=== PATIENT | male | born 1980 | race Caucasian/White ===

== ENCOUNTER 2016-12-10 17:37 | Observation (INO) ==
[2016-12-10 18:20] LABS: Basophils % 0.3 %; Eosinophils # 0.2 K/mcL (0.0-0.6); Eosinophils % 1.7 %; Hematocrit 42.8 % (37.5-50.1); Hemoglobin 13.7 g/dL (12.9-16.9); Immature Granulocytes % 0.5 % (0-4); Lymphocytes # 2.4 K/mcL (0.6-4.6); Lymphocytes % 27.5 %; Mean Corpuscular Hemoglobin 28.7 pg (28.0-33.3); Mean Corpuscular Volume 89.7 fL (83.0-100.0); Mean Platelet Volume 9.9 fL (9.4-12.4); Monocytes # 0.9 K/mcL (0.0-1.3); Monocytes % 10.6 %; Neutrophils # 5.2 K/mcL (1.6-8.9); Platelet Count 237 K/mcL (140-400); Red Blood Count 4.77 M/mcL (4.19-5.50); Red Cell Distribution Width 13.1 % (11.5-14.5); Segmented Neutrophils % 59.4 %
[2016-12-10 18:35] LABS: Alanine Aminotransferase 35 Units/L (0-55); Albumin 3.7 g/dL (3.5-5.0); Alkaline Phosphatase 66 Units/L (38-126); Aspartate Amino Transferase 21 Units/L (5-34); BUN/Creatinine Ratio 10 (6-26); Bilirubin,Total 0.4 mg/dL (0.2-1.2); Blood Urea Nitrogen 10 mg/dL (8-26); Calcium 9.1 mg/dL (8.6-10.8); Carbon Dioxide 24 mEq/L (19-29); Chloride 107 mEq/L (98-109); Globulin 3.8 g/dL (2.4-3.5); Glucose 105 mg/dL (70-99); Osmolality,Calculated 287 (280-300); Potassium 3.9 mEq/L (3.5-4.5); Sodium 139 mEq/L (136-145); Total Protein 7.5 g/dL (6.0-8.3); eGFR For African Americans > 60 (> 60); eGFR For Non-African Americans > 60 (> 60)
[2016-12-10] MEDS ORDERED: Aspirin 81 MG TAB.CHEW PO ONE (19:36)
[2016-12-10] MEDS: Nitroglycerin 0.4 MG TAB.SUBL SL ONE ×3 (20:17→20:28)
--- NOTE | 2016-12-10 21:07 | Emergency Department Note ---
Addendum entered and electronically signed by Wood Gregory DO 21:26: This addendum serves to add EKG results which were omitted from the below report by myself: EKG #1-EKG dated 12/10/16 at 17:43 interpreted as sinus rhythm with a rate of 74. Normal intervals. Normal axis. Nonspecific ST-T changes. No previous EKG for comparison. Suspect arm lead reversal. EKG #2-repeat EKG 12/10/16 at 19:39 interpreted as sinus rhythm with rate of 60. Normal intervals. Normal axis. No ST or ischemic changes compared to previous EKG from 2 hours prior. Original Note: Disposition Clinical Impression: Chest pain of uncertain etiology Disposition: Admitted As Inpatient Condition: Fair Time of Disposition: 21:12 Chest Pain HPI - General Chief Complaint: ED Chest Pain Stated Complaint: chest pain Time Seen by Provider: 12/10/16 19:34 Source: patient Mode of arrival: ambulatory Limitations: no limitations Vital Signs Reviewed: Yes Nursing Notes Reviewed: Yes - History of Present Illness HPI Narrative: Mr. Patel, a 36-year-old male, presents from home for evaluation of chest pain. Onset 2-3 days ago. Described as left lower chest in the midclavicular line. A constant dull sensation with intermittent sharp stabbing. Radiation to his left scapula with associated left arm heaviness, and dyspnea. No diaphoresis. Patient has never had these symptoms previously. PMH: Hypertension, Atrial fibrillation rate controlled on metoprolol. No current anticoagulant. Current antiplatelet is aspirin 81 mg daily. Family history: Father had an MO at the age of 57. ROS: Positive: Chest pain with radiation, left upper extremity weakness, dyspnea Negative: Nausea, vomiting, fever, chills, diaphoresis Severity scale (1-10): 5 - Related Data Home Medications Medication Instructions Recorded Confirmed Aspirin Enteric Coated [Aspirin EC] 81 mg PO DAILY 12/10/16 12/10/16 Metoprolol Succinate 100 mg PO DAILY 12/10/16 12/10/16 Allergies Allergy/AdvReac Type Severity Reaction Status Date / Time Penicillins Allergy See Verified 12/10/16 17:39 Comments All systems ED: reviewed and negative except as stated. Chest Pain PMH - Past Medical History Medical history: Reports: atrial fibrillation, hypertension Surgical history: Reports: no surgical history Psychiatric history: Reports: no psych history - Social History Smoking Status: Never smoker Alcohol use: Reports: none Drug use: Reports: none Physical Exam Vital Signs Reviewed General: Patient is alert, oriented, and in no acute distress. HEENT: No facial asymmetry. Head is normocephalic and atraumatic. Oral mucosa moist. Trachea midline. Cardiovascular: Heart regular rate and rhythm without clicks, rubs, gallops, or murmurs. No JVD. PMI nondisplaced. Respiratory: Symmetric chest rise with good respiratory effort. Bilateral breath sounds are clear without wheezing, crackles, or rhonchi. Abdomen: Bowel sounds present normoactive x-4 quadrants. Abdomen is soft, nondistended, and nontender. No organomegaly noted. Gait: Warm, dry, intact. Psych: Patient's affect is appropriate for situation. - General Limitations: no limitations General appearance: alert Course Course Narrative: Patient present for evaluation of chest pain. Onset 2-3 days ago and persistent. Described as underlying dullness with intermittent sharp stabbing if radiation to his left scapula as well as left upper extremity weakness and dyspnea. Cardiac risk factors of hypertension, atrial fibrillation rate controlled on metoprolol. Patient takes aspirin 81 mg daily. Initial lab work is unremarkable. Specifically, no elevation of troponin and unremarkable EKG. Repeat EKG at the two-hour shabana is also unremarkable. Patient is having chest pain at this time. It was fully relieved with 3 rounds of 400mcg sublingual nitroglycerin. I discussed the patient is initial findings, the meaning of an EKG, and the meaning of troponin. I discussed the need for admission to risk stratify his symptoms. He expresses understanding and agrees. I spoke with the admitting hospitalist, , who agrees to accept the patient for chest pain rule out ACS. Vital Signs Temperature 98.6 F 12/10/16 17:44 Pulse Rate 89 12/10/16 17:44 Respiratory Rate 20 12/10/16 17:44 Blood Pressure 136/65 12/10/16 17:44 O2 Sat by Pulse Oximetry 95 12/10/16 17:44 Temperature 97.8 F 12/11/16 03:45 Pulse Rate 73 12/11/16 03:45 Respiratory Rate 17 12/11/16 03:45 Blood Pressure 110/67 12/11/16 03:45 O2 Sat by Pulse Oximetry 93 12/11/16 03:45 Oxygen Delivery Oxygen Delivery Room Air Chest Pain - Medical Records Medical records reviewed: Yes I reviewed the patient's medical records. - Lab Data Lab results reviewed: Yes I reviewed the patient's lab results. Result diagrams: 12/11/16 01:49 12/11/16 01:49 Lab Results 12/10/16 12/10/16 12/10/16 Range/Units 18:05 18:05 18:05 WBC 8.8 (4.3-11.1) K/mcL RBC 4.77 (4.19-5.50) M/mcL Hgb 13.7 (12.9-16.9) g/dL Hct 42.8 (37.5-50.1) % MCV 89.7 (83.0-100.0) fL MCH 28.7 (28.0-33.3) pg MCHC 32.0 (31.6-35.5) g/dL RDW 13.1 (11.5-14.5) % Plt Count 237 (140-400) K/mcL MPV 9.9 (9.4-12.4) fL Immature Gran % 0.5 (0-4) % Seg Neutrophils % 59.4 % Lymphocytes % 27.5 % Monocytes % 10.6 % Eosinophils % 1.7 % Basophils % 0.3 % Neutrophils # 5.2 (1.6-8.9) K/mcL Lymphocytes # 2.4 (0.6-4.6) K/mcL Monocytes # 0.9 (0.0-1.3) K/mcL Eosinophils # 0.2 (0.0-0.6) K/mcL Basophils # 0.0 (0.0-0.2) K/mcL Sodium 139 (136-145) mEq/L Potassium 3.9 (3.5-4.5) mEq/L Chloride 107 (98-109) mEq/L Carbon Dioxide 24 (19-29) mEq/L BUN 10 (8-26) mg/dL Creatinine 0.97 (0.72-1.25) mg/dL Est GFR ( Amer) > 60 (> 60) Est GFR (Non-Af Amer) > 60 (> 60) BUN/Creatinine Ratio 10 (6-26) Glucose 105 H (70-99) mg/dL Calculated Osmolality 287 (280-300) Calcium 9.1 (8.6-10.8) mg/dL Total Bilirubin 0.4 (0.2-1.2) mg/dL AST 21 (5-34) Units/L ALT 35 (0-55) Units/L Alkaline Phosphatase 66 (38-126) Units/L Troponin I 0.00 (0-0.03) ng/mL Serum Total Protein 7.5 (6.0-8.3) g/dL Albumin 3.7 (3.5-5.0) g/dL Globulin 3.8 H (2.4-3.5) g/dL Albumin/Globulin Ratio 1.0 L (1.1-2.2) - Radiology Data Radiology results reviewed: Yes I reviewed the patient's radiology results. Chest X-Ray 12/10/16 17:39 IMPRESSION: No evidence of acute disease. D/ / Tiburcio Prince MD / Tiburcio Prince MD Interpreting Provider: Tiburcio Prince MD Heart Score - Score History: Moderately Suspicious EKG: Non Specific repolarisation Disturbance Age: Less than 45 Risk Factors: Equal/Greater than 3 risk factor or history of atherosclerotic disease Troponin: Less than normal limit HEART Score Total: 4 Attestation Statement - Attestation Attestation: I examined this patient and my medical decision-making was reviewed with the Resident Physician, Dr. Gregory. I agree with the documented findings, disposition and treatment plan as described except to the extent set forth below. Patient is 36-year-old male who presents to the emergency room today with a history of atrial fibrillation and hypertension who is complaining of left- sided chest pain that radiates into the left scapula associated with shortness of breath for the last 2 days. I agree patient's physical exam findings as documented. EKG was normal sinus rhythm without ischemic changes this was compared to an old EKG which was unchanged. Patient received aspirin and nitroglycerin on arrival which completely alleviated his symptoms and he is now chest pain-free with stable vital signs. Initial troponin was negative chest x-ray is clear. We will admit the patient for further evaluation of chest pain rule out ACS. Case was discussed with the hospitalist who accepted the patient for admission for further management.
[2016-12-10] MEDS ORDERED: Naloxone 0.4 MG/ML INJ IVP PRN (23:36)
[2016-12-10] MEDS ORDERED: Nitroglycerin 0.4 MG TAB.SUBL SL PRN (23:40)
--- NOTE | 2016-12-10 23:50 | Internal Med History&Physical ---
<Sienna Duran - Last Filed: 12/11/16 00:17> Date of Encounter: 12/11/16 Time of Encounter: 23:47 Assessment and Plan (1) Chest pain Current visit: Yes Status: Acute 1 . The past 2-3 days patient has been experiencing left-sided chest heaviness which was nonradiating. No aggravating or relieving factors. He has a history of hypertension hyperlipidemia father had MS at age 49. Troponin serially will continue to trend troponins 2 continuous cardiac monitoring 3 obtain lipid profile-statin 4 continue with aspirin and beta dee 5. Nothing by mouth after midnight-cardiac stress in a.m. 6 nitroglycerin for chest pain 7 oxygen as needed Qualifiers: Chest pain type: unspecified Qualified Code(s): R07.9 - Chest pain, unspecified (2) Hypertension Current visit: No Status: Chronic Presently controlled we will continue with metoprolol Low-sodium diet Qualifiers: Hypertension type: essential hypertension Qualified Code(s): I10 - Essential (primary) hypertension (3) Paroxysmal atrial fibrillation Current visit: Yes Status: Acute Presently in sinus rhythm Continue with metoprolol and aspirin (4) DVT prophylaxis Current visit: No Status: Chronic 1 Lovenox subcutaneous Internal Medicine - H&P: HPI Chief complaint: CP Admitted From: Emergency Dept Plans for Post Hospital Care: Home History of present illness: Mr. Patel is a 36 year old male with history of hypertension paroxysmal atrial fibrillation. Currently the patient he began to experience left-sided chest heaviness on Friday which she described 6/10 pain nonradiating. There were no aggravating or relieving factors. Chest heaviness resolved on own however he continued to experience intermittent heaviness over the next 2-3 days. She denies any associated symptoms of dyspnea diaphoresis or nausea. He did have a stress test 2 years ago which he states was negative. He does have a history of atrial fibrillation which he takes baby aspirin and metoprolol. He presented to the ER with the above complaints. Lab work was obtained which was unremarkable troponin was 0.0. Chest x-ray was negative. EKG with no ST-T wave abnormalities. He has been admitted for further workup and evaluation. Presently patient denies any chest pain palpitations or shortness of breath. His lung sounds are clear heart sounds are regular S1 and S2 with no rubs clicks gallops murmurs noted. Abdomen soft nontender no pedal edema. He is hemodynamically stable this time. I reviewed this case with Dr. Angelo who agrees with plan. Past Med Surg Social Fam HX - Past Medical History Medical history: atrial fibrillation, hypertension Psychiatric history: no psych history - Past Surgical History Surgical History: no surgical history - Social History Smoking Status: Never smoker Smokeless Tobacco Status: No Alcohol use: none Drug use: none - Family History Father Living Status: Still Living Hx Family Cardiac Disorders: Yes (MS at 49, HTN) Hx Family Endocrine Disorder: Yes (DM) Mother Living Status: Still Living Hx Family Cardiac Disorders: Yes (HTN) Internal Medicine - H&P: Meds Aspirin Enteric Coated [Aspirin EC] 81 mg PO DAILY 12/10/16 [History] Metoprolol Succinate 100 mg PO DAILY 12/10/16 [History] 3 Allergy/AdvReac Type Severity Reaction Status Date / Time Penicillins Allergy See Verified 12/10/16 17:39 Comments All Systems PM: A 10-system review of systems was performed and is negative for pertinent findings except as documented above in the HPI. - Constitutional Constitutional: no chills, no fever(s), no night sweats - EENT Eyes: no change in vision, no discharge, no pain, no photophobia Nose, mouth and throat: no dysphagia, no nasal discharge, no neck pain, no sore throat - Cardiovascular Cardiovascular ROS IM: chest pain - Respiratory Respiratory: no cough, no dyspnea, no wheezing, no excessive phlegm production - Gastrointestinal Gastrointestinal: no abdominal pain, no diarrhea, no hematemesis, no hematochezia, no melena, no nausea, no vomiting - Musculoskeletal Musculoskeletal ROS IM: no numbness, no tingling - Integumentary Integumentary IM: no rash, no unusual bruising - Neurological Neurological ROS: no confusion, no convulsions, no focal weakness, no numbness, no tingling, no tremor(s) - Constitutional Vitals: Temp Pulse Resp BP Pulse Ox 98.2 F 65 16 138/83 96 12/10/16 23:21 12/10/16 23:21 12/10/16 23:21 12/10/16 23:21 12/10/16 23:21 General appearance: Present: A&O X 3, answers questions appropriately - Head Head exam: Present: atraumatic, normocephalic - Eye Eye exam: Present: PERRL, conjuntiva pink, sclera anicteric Pupils: Present: PERRL - Neck Neck exam general surgery: Present: supple, trachea midline. Absent: lymphadenopathy - Respiratory Respiratory exam: Present: CTAB. Absent: accessory muscle use, rales, rhonchi, wheezes - Cardiovascular Cardiovascular exam: Present: RRR, +S1, +S2. Absent: diastolic murmur, gallop, rubs, systolic murmur - GI/Abdominal GI/Abdominal exam: Present: normal bowel sounds, soft, no peritoneal signs. Absent: distended, tenderness - Extremities Exam Extremities exam: Present: warm, radial pulses palpable and symmetrical. Absent : calf tenderness, cyanotic, pedal edema - Neurological Exam Neurological exam: Present: CN II-XII intact, oriented X3, no focal deficits. Absent: pronater drift, facial droop, speech deficit - Skin Skin exam: Present: dry, intact Internal Med - H&P Results - Labs CBC & Chem 7: 12/10/16 18:05 12/10/16 18:05 - EKG Data EKG shows normal: sinus rhythm - EKG Data Interpretation IM: normal EKG - Diagnostic Studies Other Images Additional comments: Chest X-Ray 12/10/16 17:39 IMPRESSION: No evidence of acute disease. D/ / Tiburcio Prince MD / Tiburcio Prince MD Interpreting Provider: Tiburcio Prince MD <Naresh Santillan - Last Filed: 12/11/16 03:27> Date of Encounter: 12/11/16 Internal Medicine - H&P: HPI History of present illness: Mr. Patel is a 36 year old male All Systems PM: A 10-system review of systems was performed and is negative for pertinent findings except as documented above in the HPI. - Constitutional Vitals: Temp Pulse Resp BP Pulse Ox 98.2 F 65 16 138/83 96 12/10/16 23:21 12/10/16 23:21 12/10/16 23:21 12/10/16 23:21 12/10/16 23:21 Internal Med - H&P Results - Labs CBC & Chem 7: 12/11/16 01:49 12/10/16 18:05 Labs: Short CBC 12/11/16 Range/Units 01:49 WBC 8.0 (4.3-11.1) K/mcL Hgb 12.7 L (12.9-16.9) g/dL Hct 39.0 (37.5-50.1) % Plt Count 212 (140-400) K/mcL Neutrophils # 4.3 (1.6-8.9) K/mcL - Attending Attestation I have seen and examined the patient. I have reviewed the orders and the note. Patient is a 36-year-old male with past medical history of hypertension and history of atrial fibrillation. He presents to the ED with complaints of chest pain. Pain started about 2-3 days ago. No aggravating or alleviating factors. Chest pain is now resolved. Patient states he takes a baby aspirin and metoprolol at home. Initial workup in the ED is negative. Troponin is negative. We will trend troponins. Patient will need stress test in a.m. Continue aspirin and statin. Continue home meds. Patient does not have any other complaints at this time. Heart rate 65, blood pressure 138/83, O2 96% on room air. Heart S1-S2 positive no murmurs. Lungs good air entry bilateral and no wheezing or crackle. Abdomen soft nontender no masses or guarding. Extremities all pulses strong regular, no edema noted
[2016-12-11 02:54] LABS: Basophils % 0.4 %; Eosinophils # 0.2 K/mcL (0.0-0.6); Eosinophils % 2.1 %; Hemoglobin 12.7 g/dL (12.9-16.9); Immature Granulocytes % 0.4 % (0-4); Lymphocytes # 2.7 K/mcL (0.6-4.6); Lymphocytes % 33.3 %; Mean Corpuscular HGB Conc 32.6 g/dL (31.6-35.5); Mean Corpuscular Hemoglobin 29.2 pg (28.0-33.3); Mean Corpuscular Volume 89.7 fL (83.0-100.0); Mean Platelet Volume 10.5 fL (9.4-12.4); Monocytes # 0.8 K/mcL (0.0-1.3); Neutrophils # 4.3 K/mcL (1.6-8.9); Platelet Count 212 K/mcL (140-400); Red Blood Count 4.35 M/mcL (4.19-5.50); Red Cell Distribution Width 13.1 % (11.5-14.5); Segmented Neutrophils % 53.8 %
[2016-12-11 03:08] LABS: BUN/Creatinine Ratio 10 (6-26); Blood Urea Nitrogen 10 mg/dL (8-26); Calcium 8.6 mg/dL (8.6-10.8); Carbon Dioxide 28 mEq/L (19-29); Chloride 106 mEq/L (98-109); Chol/HDL Ratio 5.3 (0-4.9); Cholesterol 174 mg/dL (< 200); Glucose 119 mg/dL (70-99); HDL Cholesterol 33 mg/dL (40-59); LDL Cholesterol,Calculated 121 mg/dL (0-99); Magnesium 2.1 mg/dL (1.6-2.6); Osmolality,Calculated 290 (280-300); Potassium 3.6 mEq/L (3.5-4.5); Sodium 140 mEq/L (136-145); Triglycerides 102 mg/dL (< 150); eGFR For African Americans > 60 (> 60); eGFR For Non-African Americans > 60 (> 60)
[2016-12-11 03:45] VITALS: BP 110/67
--- NOTE | 2016-12-11 08:41 | Nuclear Medicine Stress Report ---
Exercise Nuclear Stress Name: Chun Patel Date of Study: 12/11/2016 Date: 1980 Ht: 67.0 in Medical Record#: [id number] Age: 36 Wt: 230.0 lb Gender: Male Order #: [id number] Location: [facility] Room: [facility] Supervising Provider: Amber Crockett CNP Reading Physician: Mayo Pennington DO, FACC, FASCO Ordering Physician: Vikki Chandra MD Primary Care Physician: Quita Bender CNP Stress Technologist: Ana Larsen RELATIONS SPECIALIST, CCT State Game Protector: Lisa Harrison Indications: Chest Pain Impression: Exercise ECG is negative for ischemia. The exercise capacity was excellent. No chest discomfort reported. Gated EF = 53%. Small sized, moderate intensity, fixed apical inferior defect c/w artifact. Perfusion imaging was negative for ischemia or infarct. History: Hypertension Stress Test Summary: Stress Test Type: Treadmill Protocol: Parker Baseline Information: Initial Heart Rate: 86 Blood Pressure: 128/72 Stress Information: Stress Time: 10 min 31 sec Test Terminated Due to (primary): Fatigue Maximum Blood Pressure: 152/82 Maximum Heart Rate: 165 Percent Maximum Heart Rate Achieved: 90 Double Product: [id number] METS Reached: 12.8 Symptoms: No chest symptoms Nuclear Summary: SPECT myocardial perfusion imaging using Tc99m Sestamibi given intravenously was performed at rest and following cardiac stress testing. The resting images were obtained following initial dose of 11.7 mCi. Following stress an additional dose of 35.0 mCi was given at peak exercise or 30 seconds post regadenoson infusion. Medication Given: Time Medication Dose Units Route Findings: Stress Note * Resting ECG demonstrated normal sinus rhythm. * No baseline arrhythmias were noted. * Exercise ECG is negative for ischemia. * Rare PVCs noted during stress. * The exercise capacity was excellent. * Patient had no chest pain during stress. * Normal hemodynamic responses to exercise. Study Quality * Study quality is average. Gated EF % * Gated EF = 53%. Left Ventricle * The left ventricle is dilated. * LVEDV = 140 mL. Inferior Perfusion Rest * The apical inferior segment shows a moderate reduction in perfusion. * The basal inferior segment shows a moderate reduction in perfusion, which resolved with stress imaging. Inferior Perfusion Stress * The apical inferior segment shows a moderate reduction in perfusion. TID * No evidence of transient ischemic dilatation. TID ratio = 0.92. Lung Uptake * There is no evidence of increase lung uptake. Updated by Mayo Pennington DO, ROXANN, MARILYNN, SIRI on 12/11/2016 8:34:09 AM electronically signed on 12/11/2016 8:35:27 AM with status of Final
[2016-12-11] MEDS ORDERED: Metoprolol XL (24 HR) Succ 50 MG TAB.ER.24H PO SCH (09:00)
[2016-12-11] MEDS ORDERED: Aspirin Enteric Coated 81 MG Tablet PO SCH (09:00)
--- NOTE | 2016-12-11 10:34 | Discharge Summary ---
Date of Encounter: 12/11/16 Time of Encounter: 10:32 - Discharge Diagnosis (1) Obesity (BMI 30-39.9) Priority: Secondary Status: Acute (2) Paroxysmal atrial fibrillation Priority: Secondary Status: Acute (3) Musculoskeletal chest pain Priority: Primary Status: Acute - Discharge Medications Home Medications: Aspirin Enteric Coated [Aspirin EC] 81 mg PO DAILY 12/10/16 [History] Metoprolol Succinate 100 mg PO DAILY 12/10/16 [History] Allergies/Adverse Reactions: 3 Allergy/AdvReac Type Severity Reaction Status Date / Time Penicillins Allergy See Verified 12/10/16 17:39 Comments Procedures/tests Complete & Pending: Procedures Performed prior 72 hours Category Date Time Status NM tomer perf SPECT multi [NM] Routine Exams 12/11/16 00:05 Taken EV echocardiogram Routine Y 12/11/16 23:42 Completed SP exercise nuclear stress Routine Y 12/11/16 07:00 Completed Date of admission: 12/10/16 20:24 Primary care physician: Quita Bender - Patient Status Disposition: Home, Self-Care Condition: Fair Functional capacity at discharge: independent ambulation Overall status at discharge: patient is back to baseline - Discharge Instructions Follow Up With: Quita Bender [Primary Care Provider] - Forms: ED Satisfaction Letter - Diet and Activity Activity: increase activity as tolerated Diet: low fat, low cholesterol Hospital course: Mr. Patel is a 36 year old male with past medical history significant for paroxysmal atrial fibrillation on aspirin and metoprolol who presented to the hospital for chest pain that was radiating to the left shoulder. His initial EKG was negative. He was placed in observation. Serial troponins were negative. A stress test done this morning was negative for ischemia. Echocardiogram was normal. EKG was normal. Chest x-ray was reported normal. LDL cholesterol was slightly elevated. She was advised to follow a heart healthy diet and follow-up with his primary care physician. He is medically stable for discharge home. He was instructed to return to the hospital and chest pain recurs. He expressed understanding and agreement with the plan. - Time Spent with Patient Total time spent providing and/or coordinating discharge services: - Constitutional Vitals: Temp Pulse Resp BP Pulse Ox 97.8 F 73 17 110/67 93 12/11/16 03:45 12/11/16 03:45 12/11/16 03:45 12/11/16 03:45 12/11/16 03:45 General appearance: Present: A&O X 3, answers questions appropriately - Respiratory Respiratory exam: Present: CTAB. Absent: accessory muscle use, rales, rhonchi, wheezes - Cardiovascular Cardiovascular exam: Present: RRR, +S1, +S2. Absent: diastolic murmur, gallop, rubs, systolic murmur - GI/Abdominal GI/Abdominal exam: Present: normal bowel sounds, soft, no peritoneal signs. Absent: distended, tenderness
--- NOTE | 2016-12-11 16:07 | Electrocardiograph Report ---
[place] [address] Test Date: 2016-12-10 Pat Name: Chun Patel Department: 102 Room: [facility] Gender: M Financial Planning Analyst: : 1980 Requested By: Wood Gregory Order Number: [id number] Reading MD: Parker Acosta MD Measurements Intervals [place] Rate: 74 P: 150 NC: 151 QRS: 154 QRSD: 102 T: 169 QT: 354 QTc: 381 Interpretive Statements SINUS RHYTHM ARM LEADS REVERSED Electronically Signed On 12-11-2016 16:06:23 EDT by Parker Acosta MD
--- NOTE | 2016-12-11 16:10 | Electrocardiograph Report ---
[address] [address] Test Date: 2016-12-10 Pat Name: Chun Patel Department: 104 Room: [facility] Gender: Direct Support Professional: : 1980 Requested By: Wood Gregory Order Number: [id number] Reading MD: Parker Acosta MD Measurements Intervals [place] Rate: 60 P: 44 ND: 149 QRS: 34 QRSD: 94 T: 9 QT: 372 QTc: 373 Interpretive Statements SINUS RHYTHM WITH SINUS ARRHYTHMIA BASELINE ARTIFACT Electronically Signed On 12-11-2016 16:08:26 EDT by Parker Acosta MD
--- NOTE | 2016-12-11 16:18 | Electrocardiograph Report ---
[address] [address] Test Date: 2016-12-11 Pat Name: Chun Patel Department: 114 Room: [facility] Gender: M Coat Checker: [facility] : 1980 Requested By: Edgar Wolff Order Number: [id number] Reading MD: Parker Acosta MD Measurements Intervals [place] Rate: 71 P: 32 RI: 161 QRS: 29 QRSD: 97 T: 12 QT: 372 QTc: 395 Interpretive Statements SINUS RHYTHM Electronically Signed On 12-11-2016 16:16:12 EDT by Parker Acosta MD
== END 2016-12-11 11:31 | disposition home or self-care (01) ==
LOC: 3NENU 17:37 → EMEROO 17:37 → SUATTDRO 20:24 → 3NENU 22:47
PROVIDERS: ADMIT Family Medicine; ATTEND Internal Medicine